=== PATIENT | female | born 1970 | race Hispanic/Latino ===

== ENCOUNTER 2020-03-12 16:50 | Emergency (ER) | payer SELFPAY | END 2020-03-12 17:01 | disposition left against medical advice (07) | PROVIDERS: Emergency Provider Internal Medicine Hematology & Oncology | DX: Z53.21 Procedure and treatment not carried out due to patient leaving prior to being seen by health care provider (principal) | CPT/HCPCS: 99199 ==

== ENCOUNTER 2020-03-12 17:18 | Observation (INO) | payer SELFPAY ==
[2020-03-12] VITALS (12 sets, daily range): BP systolic 126–161; BP diastolic 61–89; PULSE 111–135; RESP 12–25; TEMP 36.7–37.2; O2SAT 93–100; BMI 42.0
--- NOTE | ~2020-03-12 | CT_ITS ---
EXAMINATION: CT brain wo con DATE: 03/12/2020 19:49 INDICATION: Dizziness. TECHNIQUE: Computed tomography (CT) of the head was performed without intravenous contrast. The mA wa s adjusted according to patient size. Iterative reconstruction technique was employed. The dose-lengt h product was 605.33 mGy-cm. COMPARISON: None FINDINGS: There is no intracranial hemorrhage, acute infarction, or abnormal intracranial mass lesion . The ventricles are normal in size. The mastoid air cells are normal. The paranasal sinuses are aaron r. The orbits are normal. IMPRESSION: 1. Normal brain. Reviewed, dictated and finalized at location A. IMPRESSION: 1. Normal brain.
--- NOTE | ~2020-03-12 | US_ITS ---
EXAMINATION: US right upper quadrant EXAM DATE: 03/13/2020 08:47 INDICATION: Elevated liver function tests. TECHNIQUE: Multiple grayscale and Doppler images of the abdomen right upper quadrant were obtained (b y a technologist who performed the scan) and subsequently reviewed. There is no prior study for alexsandra walton. FINDINGS: The pancreatic head and body are normal in appearance. The pancreatic tail is not visualized. There is echogenic liver parenchyma, hepatic steatosis. There are no focal liver lesions identified. Th ere is no evidence of intrahepatic biliary duct dilation. Portal venous flow was seen in the hepatop edal, normal direction and has normal Doppler waveform. No right-sided hydronephrosis. Common bile duct measures 3 mm, which is normal. The gallbladder fossa is unremarkable. IMPRESSION: 1. Hepatic steatosis. Reviewed, dictated and finalized at location B. IMPRESSION: 1. Hepatic steatosis.
--- NOTE | ~2020-03-12 | XR_ITS ---
EXAMINATION: XR chest 1V portable DATE: 03/12/2020 17:49 INDICATION: Shortness of breath. TECHNIQUE: A single frontal view of the chest was obtained. COMPARISON: Chest 2 views 11/28/2011 FINDINGS: The chest demonstrates clear lungs without pneumonia, pleural effusion, or pneumothorax. Th e heart size is normal. IMPRESSION: 1. No acute cardiopulmonary disease. Reviewed, dictated and finalized at location A.
--- NOTE | 2020-03-12 17:36 | ECG_ITS ---
Measurements Intervals [place] Rate: 126 P: 66 IN: 145 QRS: 29 QRSD: 89 T: 59 QT: 334 QTc: 484 Interpretive Statements SINUS TACHYCARDIA DELAYED PRECORDIAL R/S TRANSITION ABNORMAL ECG Electronically Signed On 03-12-2020 20:18:04 CDT by Filiberto Kent D.O.
[2020-03-12 17:54] LABS: Basophils Absolute Auto 0.1 K/mm3 (0.0-0.1); Basophils Percent Auto 0.4 % (0.2-1.2); Eosinophils Absolute Auto 0.3 K/mm3 (0-0.3); Eosinophils Percent Auto 2.2 % (0-4.4); Hematocrit 43.8 % (37.0-47.0); Hemoglobin 14.7 g/dL (12.0-15.0); Immature Granulocyte Absolute 0.04 K/mm3 (0.00-0.031); Immature Granulocyte Percent A 0.4 % (0-0.5); Lymphocytes Percent Auto 41.8 % (18.3-44.2); Mean Corpuscular HGB Conc 33.6 g/dl (32-36); Mean Corpuscular Hemoglobin 30.8 pg (26-34); Mean Corpuscular Volume 91.8 fl (80-100); Mean Platelet Volume 12.3 fl (7.4-10.4); Monocytes Percent Auto 9.2 % (2.6-8.5); Neutrophils Absolute Auto 5.2 K/mm3 (1.3-6.7); Platelet Count Result 193 k/mm3 (150-375); Red Blood Count 4.77 M/mm3 (4.2-5.4); Red Cell Distribution Width 13.2 % (11.5-14.5); White Blood Count 11.3 K/mm3 (4.5-10.0)
[2020-03-12 18:03] LABS: INR 1.1
[2020-03-12 18:04] LABS: Partial Thromboplastin Time 25.8 SECONDS (22.3-36.8)
[2020-03-12 18:08] LABS: Alanine Aminotransferase 71 U/L (4-35); Albumin Level 3.8 g/dL (3.5-5.1); Alkaline Phosphatase 257 U/L (38-126); Anion Gap 8 mmol/L (8-16); Aspartate Amino Transferase 105 U/L (14-36); Bilirubin,Total 0.6 mg/dL (0.2-1.3); Blood Urea Nitrogen 10 mg/dL (7-17); Calcium 8.8 mg/dL (8.4-10.2); Carbon Dioxide 26 mmol/L (22-30); Chloride 99 mmol/L (98-107); Estimated CRCL calculation 132 ml/min; Estimated Glomerular Filt Rate > 60; Glucose 447 mg/dL (65-105); Potassium 3.2 mmol/L (3.4-5.0); Sodium 133 mmol/L (137-145)
[2020-03-12 18:20] LABS: NT Pro B Type Natriuretic Pept 77 PG/ML (5-100); Troponin I < 0.012 ng/mL (0.000-0.034)
--- NOTE | 2020-03-12 18:35 | ED.DIZZY ---
HPI - Dizziness General Chief Complaint: Dizziness Stated Complaint: dizzy/HTN Time Seen by Provider: 03/12/20 18:14 Source: patient and family History of Present Illness HPI Narrative: 50 years old female presents with dizziness 30 minutes after taking her sister and law blood pressure medicine, nifedipine ER 60 mg. 2 hours ago. Currently patient feeling okay, denying any symptoms, blood pressure right now is 136/84. Patient ran out of her lisinopril 20 mg once a day 1 week ago. Patient denies any fever, chills, nausea, vomiting, shortness of breath, chest pain, headache. Related Data Home Medications Medication Instructions Recorded Confirmed No Home Medications 03/12/20 03/12/20 Allergies Allergy/AdvReac Type Severity Reaction Status Date / Time No Known Allergies Allergy Verified 03/12/20 17:19 Review of Systems Review of Systems: Narrative: CONSTITUTIONAL: Denies fever, chills, or sweats. EYES: Denies visual changes, redness, or discharge. ENT: Denies rhinorrhea, congestion, sore throat, or otalgia. CARDIOVASCULAR: Denies chest pain, palpitations, or edema. RESPIRATORY: Denies cough or dyspnea. GASTROINTESTINAL: Denies abdominal pain, nausea, vomiting, or diarrhea. GENITOURINARY: Denies dysuria or hematuria. SKIN: Denies rash or itching. MUSCULOSKELETAL: Denies back pain, joint pain, or myalgia. NEUROLOGIC: Denies headache, numbness, or weakness. PSYCHIATRIC: Denies anxiety or depression. PMFSH Past Medical History Medical History (Updated 03/12/20 @ 18:39 by Nomi Kelsey MD) Hypertension Social History Social History (Updated 03/12/20 @ 18:38 by Nomi Kelsey MD) Second hand tobacco smoke exposure: No Substance use: never Gender identity (if verbalized by the patient): Female Exam Narrative: Exam Narrative: General appearance: Well-developed, well-nourished Skin: Normal color Head: Normocephalic, nontraumatic Eyes: Clear conjunctiva ENT: Oropharynx normal, ears normal, nose normal Neck: Supple, nontender Chest and respiratory: Airway patent, no respiratory distress, no accessory muscle use Heart: Regular rate/rhythm Abdomen: Soft, nontender, no organomegaly, quiet bowel sounds Vascular: Normal peripheral pulses, normal capillary refill. Musculoskeletal: Normal range of motion, nontender back Neurologic: Alert and oriented ?3, [employer] is normal as tested, no gross motor deficit Course Course Emergency Course: Improving Vital Signs Vital signs: Vital Signs Temperature 37.2 C 03/12/20 17:22 Pulse Rate 129 H 03/12/20 17:22 Respiratory Rate 20 03/12/20 17:22 Blood Pressure 161/80 H 03/12/20 17:22 Pulse Oximetry 97 03/12/20 17:22 Temperature 37.2 C 03/12/20 17:22 Pulse Rate 129 H 03/12/20 17:22 Respiratory Rate 20 03/12/20 17:22 Blood Pressure 161/80 H 03/12/20 17:22 Pulse Oximetry 97 03/12/20 17:22 MDM - Dizziness MDM Narrative Medical decision making narrative: Patient presents with dizziness, 30 minutes after taking nifedipine ER 60 mg. High likely patient had low blood pressure at that time causing her dizziness. On arrival to the emergency room patient symptom resolved. Currently denying any symptoms. Currently blood pressure is 136/84. The plan to discharge patient on lisinopril 20 mg once a day. Lab Data Result diagrams: 03/12/20 17:49 03/12/20 17:49 Labs: Lab Results 03/12/20 03/12/20 03/12/20 Range/Units 17:49 17:49 17:49 WBC 11.3 H (4.5-10.0) K/mm3 RBC 4.77 (4.2-5.4) M/mm3 Hgb 14.7 (12.0-15.0) g/dL Hct 43.8 (37.0-47.0) % MCV 91.8 (80-100) fl MCH 30.8 (26-34) pg MCHC 33.6 (32
[2020-03-12 18:40] LABS: Add Urine Microscopic? YES; Appearance Urine Cloudy (Clear); Bacteria Urine Trace /hpf; Bilirubin Urine Negative (Negative); Blood Urine Negative (Negative); Color Urine Yellow (Yellow); Glucose Urine UA 3+ mg/dL (Negative); Ketones Urine Negative (Negative); Leukocyte Esterase Ur Negative LEU/UL (Negative); Mucus Urine Rare /lpf; Nitrate Urine Negative (Negative); Protein Urine Negative (Negative); RBC Urine 0-2 /hpf (0-2); Squamous Epithelial Cell Urine Many /hpf (Few); Urobilinogen Urine Negative mg/dL (<2.0); WBC Urine 0-3 /hpf
[2020-03-12] MEDS: POTASSIUM CHLORIDE 20 MEQ PACKET (FOR LIQUID) 40 MEQ PO (18:55)
[2020-03-12] MEDS: SODIUM CHLORIDE 0.9% IV 1,000 ML 30 ML IV CONT (18:55)
[2020-03-12 19:06] LABS: Magnesium 1.6 mg/dL (1.6-2.3); Phosphorus 3.1 mg/dL (2.5-4.5)
--- NOTE | 2020-03-12 19:10 | PC.NURSE ---
Report received from TROY Mcneil. Assumed care of patient at this time.
[2020-03-12 19:11] LABS: Beta-Hydroxybutyrate/Acetoacetate 0.07 mmol/L (0.02-0.27)
[2020-03-12 19:11] LABS: Base Excess ABG 0.7 mEq/l (+/-2.0); Fractional Inspired Oxygen 21 %; HCO3 ABG 24.6 mEq/l (22.0-26.0); Oxygen Content ABG 20.2 %vol (16.0-22.0); Oxygen Saturation ABG 95.9 % (95.0-100.0); Oxyhemoglobin 94.3 % THb (90.0-100.0); PCO2 ABG 37.5 mmHg (35.0-45.0); PO2 ABG 77.8 mmHg (80.0-100.0); Total Hemoglobin 15.2 g/dL (12.0-18.0); pH ABG 7.435 (7.350-7.450)
[2020-03-12 19:12] LABS: Device ROOM AIR; Modified Allen's Test Pass; Site Drawn RIGHT RADIAL
[2020-03-12 19:24] LABS: D Dimer 0.28 ug/mL (<0.48)
--- NOTE | 2020-03-12 19:39 | PC.NURSE ---
Patient's bedside glucose is 375.
[2020-03-12] MEDS: SODIUM CHLORIDE 0.9% IV 1,000 ML 999 ML IV CONT ×3 (19:40→22:17)
[2020-03-12] MEDS: INSULIN HUMAN REGULAR (*BKC) 100 UNITS/ML 12 UNITS IV PUSH (19:40)
[2020-03-12 19:46] LABS: Glucose Point of Care 375 (65-105)
--- NOTE | 2020-03-12 19:46 | PC.NURSE ---
Patient being taken to CT.
--- NOTE | 2020-03-12 20:00 | PM.IMHP ---
H&P: HPI History of Present Illness Date/Time: 03/12/20 20:00. The patient was seen and evaluated in the emergency department. Chief complaint: Dizziness. Narrative: Ashlyn Cannon is a 50-year-old female with hypertension presented to this with complaints of dizziness. She does not have a primary care provider and up until last month her previous physician in [place] was refilling her lisinopril prescription. Today she felt as though her blood pressure was high due to a diffuse headache and so she took her [id number]'s medication, reportedly nifedipine ER 60 mg x1. About 30 minutes thereafter she began feeling dizzy and thus she came in for evaluation. She denies vertigo and tells me she felt more lightheaded. Her blood pressure on arrival was 161/80 and several blood tests were ordered. She was found to be hyperglycemic with a random glucose of 447 with some mild electrolyte abnormalities and elevated LFTs. With further questioning she denies previous history of diabetes or prediabetes and she has not had blurry vision, weight loss, polydipsia, polyuria, or paresthesias. She also denies near syncope, syncope, vertigo, auditory and visual changes, focal weakness, chest pain, pleuritic pain, palpitations, feelings of racing heart, shortness of breath, nausea, vomiting, diarrhea, and dysuria. Review of Systems Review of Systems: Narrative: Twelve systems were reviewed with pertinent positives and negatives as per HPI. No recent cold or flu symptoms. She denies recent travel and sick contacts. No known history of cardiac disease or cardiac dysrhythmia. No history of thyroid disease. Weight has remained stable. She denies hair loss. No recent travel or history of venous thromboembolism. Denies poor healing wounds. She is an anxious person in general, and is quite anxious about having to be admitted to the hospital. She does not know her baseline heart rate. Except as documented, all other systems were reviewed and are negative. ON LICENSE OF [facility] Past Medical History Medical History (Updated 03/12/20 @ 21:10 by Estephania Stanley PA-C) Hypertension Type 2 diabetes mellitus (~03/12/20) Surgical History Surgical History (Updated 03/12/20 @ 20:22 by Estephania Stanley PA-C) History of section History of cholecystectomy History of tubal ligation Family History Family History (Updated 03/12/20 @ 20:23 by Estephania Stanley PA-C) Other Diabetes mellitus Social History Social History (Updated 03/12/20 @ 20:23 by Estephania Stanley PA-C) Social History: Surrogate decision maker: Ginna Cannon, daughter. Code status: Full code. Smoking status: Never smoker Second hand tobacco smoke exposure: No Alcohol intake: never Substance use: never Substance use type: does not use Additional living arrangements comments: Resides with her son in [place]. Occupation/Education: unemployed Gender identity (if verbalized by the patient): Female Spiritual care concerns: No Meds Home Medications and Allergies Home Medications Medication Instructions Recorded Confirmed Type lisinopril 20 mg PO DAILY 03/12/20 03/12/20 History Allergies Allergy/AdvReac Type Severity Reaction Status Date / Time No Known Allergies Allergy Verified 03/12/20 17:19 Vital Signs Vital Signs - 24 hr 03/12/20 17:22 03/12/20 19:13 03/12/20 19:15 Temperature 98.9 F Pulse Rate 129 H 117 H 116 H Respiratory Rate 20 12 16 Blood Pressure 161/80 H Pulse Oximetry 97 95 93 03/12/20 19:16 03/12/20 19:30 03/12/20 19:53 Temperature Pulse Rate 115 H Respiratory Rate 15 14 16 Blood Pressure 145/78 H Pulse Oximetry 95 97 98 03/12/20 19:58 03/12/20 20:00 03/12/20 20:01 Temperature Pulse Rate 127 H 135 H 128 H Respiratory Rate 18 23 H 17 Blood Pressure 147/75 H 148/80 H Pulse Oximetry 96 96 97 Exam Narrative: Exam Narrative: General: Well-developed female sitting up in bed
[2020-03-12] MEDS: INSULIN HUMAN REGULAR (*BKC) 100 UNITS in SODIUM CHLORIDE 0.9% IV 99 ML 6.3 UNITS IV CONT (20:01)
[2020-03-12] MEDS: SODIUM CHLORIDE 0.9% IV 1,000 ML 150 ML (20:19)
[2020-03-12 20:29] LABS: Hemoglobin A1C 9.5 % (<5.7)
--- NOTE | 2020-03-12 20:40 | PC.NURSE ---
Patient's bedside glucose is 293.
[2020-03-12 20:41] LABS: Glucose Point of Care 293 (65-105)
--- NOTE | 2020-03-12 21:06 | ADMGEN ---
This patient, Ashlyn Cannon, was admitted to Intensive Care Unit-9. Patient/family oriented to hospital policies and general routines including ID bracelet, bed and alarms, visiting hours, pain management, procedures, bathroom and other care routines, personal items, smoking policy, room service/diet, and visiting hours. Valuables list has been completed. Information on how to activate the Rapid Response Team has been discussed. Patient/Family are encouraged to report perceived risks to care and to ask questions if they do not understand what they are told or what they should do.
[2020-03-12 21:31] LABS: Troponin I < 0.012 ng/mL (0.000-0.034)
[2020-03-12 21:46] LABS: Glucose Point of Care 259 (65-105)
[2020-03-12] MEDS: INSULIN GLARGINE (*BKC) 100 UNITS/ML 15 UNITS SUB-Q (22:18)
[2020-03-12 22:39] LABS: Hepatitis B Surface Antigen Negative (Negative)
[2020-03-12 22:44] LABS: HAV RESULT Negative (Negative); Hepatitis B Core IgM Result Negative (Negative)
[2020-03-12 22:56] LABS: Hepatitis C Virus Antibody Negative (Negative)
[2020-03-13] VITALS: BP 142/85; PULSE 100; PULSE 98; RESP 96; TEMP 37.1; O2SAT 100
--- NOTE | 2020-03-13 | ECHO_ITS ---
Patient Info Name: Ashlyn Cannon Age: 50 years : 1970 Gender: Female Ht: 63 in Wt: 236 lbs BSA: 2.24 m2 HR: 75 bpm BP: 148 / 87 mmHg Heart Rhythm: Sinus Rhythm Technical Quality: Fair Exam Date: 03/13/2020 9:29 AM Exam Location: [facility] Patient Status: Outpatient Admit Date: 03/12/2020 Staff Ordering Physician: Estephania Stanley PA-C Hydraulic Plumber: Traci Morrow RDCS Attending Provider: Sriram Lord MD Referring Physician: Lizeth BENTLEY; Exam Type: CA echo doppler color flow Study Info Indications I10 - Essential (primary) hypertension R00.0 - Tachycardia, unspecified Complete two-dimensional, color flow and Doppler transthoracic echocardiogram is performed. Summary 1. Complete two-dimensional, color flow and Doppler transthoracic echocardiogram is performed. 2. Left ventricular chamber dimension is mildly enlarged. 3. Left ventricular systolic function is normal, estimated at 65-70%. 4. Left ventricular septal wall motion is normal. 5. The left ventricular diastolic function is grade I diastolic dysfunction. 6. There is mildly increased left ventricular wall thickness. 7. Left atrial chamber dimension is mildly enlarged. 8. There is mild tricuspid valve regurgitation. 9. Mild pulmonary hypertension, estimated pulmonary arterial systolic pressure is 35 mmHg. Left Ventricle Left ventricular chamber dimension is mildly enlarged. Left ventricular systolic function is normal, estimated at 65-70%. There is mildly increased left ventricular wall thickness. Left ventricular septal wall motion is normal. The left ventricular diastolic function is grade I diastolic dysfunction. Right Ventricle Right ventricular chamber dimension is normal. Right ventricular systolic function is normal. Left Atria Left atrial chamber dimension is mildly enlarged. Right Atria Right atrial chamber dimension is normal. Atrial Septum Intact interatrial septum visualized by color flow imaging. Aortic Valve The aortic valve is trileaflet. There is no aortic valve sclerosis. There is no aortic valve stenosis. There is trace aortic valve regurgitation. Pulmonic Valve The pulmonic valve is normal. There is no pulmonic valve stenosis. There is trace pulmonic regurgitation. Mitral Valve The mitral valve has normal leaflets. There is no mitral valve stenosis. There is trace mitral valve regurgitation. Tricuspid Valve The tricuspid valve leaflets are normal. There is no significant tricuspid valve stenosis. There is mild tricuspid valve regurgitation. Mild pulmonary hypertension, estimated pulmonary arterial systolic pressure is 35 mmHg. Pericardium/Pleural The pericardium appears normal. There is trivial pericardial effusion. Inferior Vena Cava Normal inferior vena cava with <50% collapse upon inspiration consistent with elevated right atrial pressure, 10 mmHg. Aorta The aortic root size at the sinus of Valsalva is normal. Left Ventricular Outflow Tract Name Value Normal LVOT 2D LVOT Diameter 2.0 cm LVOT Doppler LVOT Peak Gradient 8 m
[2020-03-13 00:16] LABS: Anion Gap 6 mmol/L (8-16); Blood Urea Nitrogen 6 mg/dL (7-17); Calcium 8.1 mg/dL (8.4-10.2); Carbon Dioxide 22 mmol/L (22-30); Chloride 109 mmol/L (98-107); Estimated CRCL calculation 159 ml/min; Estimated Glomerular Filt Rate > 60; Glucose 335 mg/dL (65-105); Potassium 4.5 mmol/L (3.4-5.0); Sodium 137 mmol/L (137-145)
[2020-03-13] MEDS: INSULIN ASPART (*BKC) 100 UNITS/ML 8 UNITS SUB-Q (01:11)
[2020-03-13 01:56] VITALS: PULSE 87
[2020-03-13 02:00] VITALS: PULSE 90; RESP 25; O2SAT 95
[2020-03-13 04:00] VITALS: PULSE 81
[2020-03-13 04:38] LABS: Mean Corpuscular HGB Conc 34.2 g/dl (32-36); Mean Corpuscular Volume 90.5 fl (80-100); Platelet Count Result 166 k/mm3 (150-375); Red Cell Distribution Width 13.2 % (11.5-14.5); White Blood Count 10.9 K/mm3 (4.5-10.0)
[2020-03-13 04:48] LABS: INR 1.2; Prothrombin Time 14.8 Seconds (11.1-14.7)
[2020-03-13 04:49] LABS: Partial Thromboplastin Time 27.1 SECONDS (22.3-36.8)
[2020-03-13 04:54] LABS: Alanine Aminotransferase 65 U/L (4-35); Albumin Level 3.1 g/dL (3.5-5.1); Alkaline Phosphatase 192 U/L (38-126); Anion Gap 2 mmol/L (8-16); Aspartate Amino Transferase 71 U/L (14-36); Bilirubin,Total 0.6 mg/dL (0.2-1.3); Blood Urea Nitrogen 5 mg/dL (7-17); Calcium 8.2 mg/dL (8.4-10.2); Carbon Dioxide 26 mmol/L (22-30); Chloride 108 mmol/L (98-107); Estimated CRCL calculation 159 ml/min; Estimated Glomerular Filt Rate > 60; Glucose 203 mg/dL (65-105); Magnesium 1.7 mg/dL (1.6-2.3); Potassium 3.5 mmol/L (3.4-5.0); Sodium 136 mmol/L (137-145)
[2020-03-13 06:31] LABS: Glucose Point of Care 205 (65-105)
[2020-03-13 07:54] LABS: Hemoglobin A1C 9.7 % (<5.7)
[2020-03-13 08:00] VITALS: BP 148/87; PULSE 75; RESP 21; TEMP 36.7; O2SAT 96
[2020-03-13] MEDS: lisinopriL 20 MG TABLET PO (08:52)
--- NOTE | 2020-03-13 09:58 | PC.NURSE ---
This patient, Ashlyn Cannon, was received from ICU on 03/13/20 at 0958. Personal belongings list checked and signed. Patient/family oriented to unit policies and routines. Report received from TROY Collins.
--- NOTE | 2020-03-13 10:00 | PC.NURSE ---
I used the [employer] to introduce myself to the patient and orient her to the unit. The translators name was Chucho and the session number was [id number].
--- NOTE | 2020-03-13 11:53 | PM.DS ---
DS: Admitting Diagnosis Admitting Diagnosis Admitting Diagnosis: Dizziness. Uncontrolled HTN Patient was found to have a blood glucose above 400 upon presentation to ED. Patient was given insulin and fluids. 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 DS: Discharge Diagnosis Discharge Diagnosis (1) Elevated LFTs: Code(s): R79.89 - Other specified abnormal findings of blood chemistry Status: Acute Assessment and Plan: Likely fatty liver will follow up in the outpatient setting. (2) Tachycardia: Code(s): R00.0 - Tachycardia, unspecified Status: Acute Assessment and Plan: Resolved, likely secondary to dehydration. (3) Electrolyte abnormality: Code(s): E87.8 - Other disorders of electrolyte and fluid balance, not elsewhere classified Status: Acute Assessment and Plan: Replaced electrolytes. (4) New onset type 2 diabetes mellitus: Code(s): E11.9 - Type 2 diabetes mellitus without complications Status: Acute Assessment and Plan: Follow up in the outpatient setting. (5) Hypertension: Qualifiers: Hypertension type: unspecified Qualified Code(s): I10 - Essential (primary) hypertension Code(s): I10 - Essential (primary) hypertension Status: Acute Assessment and Plan: Will continue on Lisinopril. DS: Summary Time Spent with Patient Time attestation: Total time spent providing and/or coordinating discharge services: Exam Narrative: Exam Narrative: Sitting in bed NAD Const: General: healthy appearing, comfortable and no acute distress Orientation/consciousness: patient oriented x3 HENMT: Head: normal to inspection and normocephalic Ears: hearing grossly normal bilaterally General nose exam: Normal external nose present Face and sinus: normal facial exam Mouth: Yes Normal oral and palatal mucosa present Eyes: Pupils: Equal, round and reactive pupils present EOM: EOMs intact bilaterally Neck: Neck: no lymphadenopathy and no JVD Resp: Auscultation: clear to auscultation bilaterally Cardio: Jugular venous distension: no JVD Rate: regular rate Heart sounds: S1 normal heart sound present and S2 normal heart sound present GI: Inspection: obesity GI Palp: Yes Soft to palpation and Yes No hepatosplenomegaly present Skin: General skin exam: normal color Lesions: no lesions Rashes: no rashes Trauma: no lacerations or abrasions Wounds: no wounds Hair: normal Neuro: General: patient oriented x3 Cranial nerves: Yes CN's II-XII intact bilaterally and Yes Equal, round and reactive pupils present Extrem: Other: No deformities, no edema. DS: Data Data Completed and Pending Labs on day of discharge: Labs from last 24 hours 03/13/20 03/13/20 03/13/20 04:17 04:17 04:17 WBC 10.9 H RBC 4.20 Hgb 13.0 Hct 38.0 MCV 90.5 MCH 31.0 MCHC 34.2 RDW 13.2 Plt Count 166 MPV 12.0 H Immature Gran % (Auto) Neut % (Auto) Lymph % (Auto) Branch % (Auto) Eos % (Auto) Baso % (Auto) Lymph # (Auto) Branch # (Auto) Eos # (Auto) Baso # (Auto) Abs Immat Gran (auto) Absolute Neuts (auto) Absolute Nucleated RBC Nucleated RBC % PT 14.8 H INR 1.2 APTT 27.1 D-Dimer Puncture Site ABG pH ABG pCO2 ABG pO2 ABG PO2/FiO2 Ratio ABG HCO3 ABG O2 Saturation ABG O2 Content ABG Base Excess A-a Gradient Oxyhemoglobin Total Hemoglobin O2 Delivery Device O2 Liters/Min FiO2 Sodium 136 L Potassium 3.5 Chloride 108 H Carbon Dioxide 26 Anion Gap 2 L BUN 5 L Creatinine 0.40 L Estim Creat Clear Calc 159 Estimated GFR > 60 Glucose 203 H POC Capillary Glucose Hemoglobin A1c Calcium 8.2 L Phosphorus Magnesium 1.7 Total Bilirubin 0.6
[2020-03-13 12:00] VITALS: PULSE 90
[2020-03-13 12:17] LABS: Glucose Point of Care 263 (65-105)
[2020-03-13] MEDS: INSULIN ASPART (*BKC) 100 UNITS/ML SUB-Q (12:21)
--- NOTE | 2020-03-13 12:42 | PCDIET ---
Nutrition consult received. Discussed carbohydrate counting with patient and daughter. See Nutritional Teaching for additional details.
[2020-03-15 04:02] LABS: Glucose Point of Care 170 (65-105)
== END 2020-03-13 13:37 | disposition home or self-care (01) ==
LOC: ANHED 20:04 → ANHICU 21:10 → ANH2MED 03-13 11:51 → ANHICU 03-14 13:06
PROVIDERS: Emergency Medicine Emergency Medical Services; Physician Assistant; Admitting Provider Family Medicine; Emergency Provider Emergency Medicine; Visit Provider Internal Medicine
DX: R79.89 Other specified abnormal findings of blood chemistry (principal); E11.65 Type 2 diabetes mellitus with hyperglycemia; E87.8 Other disorders of electrolyte and fluid balance, not elsewhere classified; R00.0 Tachycardia, unspecified; I10 Essential (primary) hypertension; K76.0 Fatty (change of) liver, not elsewhere classified; R94.31 Abnormal electrocardiogram [ECG] [EKG]
CPT/HCPCS: 36415; 36600; 70450; 71045; 76705; 80048; 80053; 80074; 80076; 81001; 82010; 82805; 82948; 83036; 83735; 83880; 84100; 84443; 84484; 85025; 85027; 85380; 85610; 85730; 93005; 93306; 96361; 96365; 96366; 96375; 99285; A9270; G0378; G0379; J1815; J3480; J7030

== ENCOUNTER 2022-05-07 14:59 | Emergency (ER) | payer SELFPAY ==
--- NOTE | 2022-05-07 15:00 | ED.DENTAL ---
HPI - Dental/Oral General Chief complaint: Dental/Oral Stated complaint: tooth pain Time Seen by Provider: 05/07/22 15:24 Source: patient, RN notes reviewed and old records reviewed Mode of arrival: ambulatory Limitations: no limitations History of Present Illness HPI Narrative: 52-year-old female presents to the [facility] with dental pain to the left upper. States she made a dental appointment for mid May. States her pain is making her not be able to sleep. MD Complaint: tooth pain Related Data Home Medications Medication Instructions Recorded Confirmed metoprolol succinate 25 mg 25 mg PO DIRECTED 05/07/22 05/07/22 tablet,extended release 24 hr Allergies Allergy/AdvReac Type Severity Reaction Status Date / Time No Known Allergies Allergy Verified 03/12/20 17:19 Review of Systems Review of Systems: All systems reviewed & are unremarkable except as noted in HPI and below Constitutional: Constitutional: Reports no additional constitutional complaints, Denies chills and Denies fever(s) Eyes: Eyes: Reports no additional eye complaints ENT: Reports as per HPI Comments: Dental pain right upper Cardiovascular: Cardiovascular: Reports no additional cardiovascular complaints, Denies chest pain and Denies dyspnea Respiratory: Respiratory: Reports no additional respiratory complaints, Denies cough and Denies dyspnea Musculoskeletal: Musculoskeletal: Reports no additional musculoskeletal complaints Integumentary/Breasts: Skin/Breast: Reports system reviewed and no additional complaints, except as docu Neurologic: Reports system reviewed and no additional complaints, except as documented Psychiatric: Psychiatric: Reports no additional psychiatric complaints Allergic/Immunologic: Allergic/Immunologic: Reports no additional allergic/immunologic complaints PMFSH Past Medical History Medical History Hypertension Type 2 diabetes mellitus (~03/12/20) Surgical History Surgical History History of section History of cholecystectomy History of tubal ligation Family History Family History Father Diabetes mellitus Hypertension Mother Diabetes mellitus Hypertension Social History Social History Social History: Surrogate decision maker: Ginna Cannon, daughter. Code status: Full code. Smoking status: Never smoker Second hand tobacco smoke exposure: No Alcohol intake: never Substance use: never Substance use type: does not use Additional living arrangements comments: Resides with her son in [place]. Gender identity (if verbalized by the patient): Female Spiritual care concerns: No Comments At the time of my signature, I reviewed and agree with the nursing past medical, surgical, social, and family history. There is no relevant family history pertinent to the patient complaint. Exam Const: General: healthy appearing, no acute distress, alert and well nourished Nutritional Appearance: well nourished Orientation/consciousness: patient oriented x3 Limitations: no limitations HENMT: Head: normal to inspection Ears: external ears normal, TM's normal bilaterally and EAC's normal Face/Nose/Sinus: external nose not normal, Normal nasal mucous membranes and turbinates present and normal facial exam Face and sinus: normal facial exam Mouth: Yes Normal oral and palatal mucosa present, Yes lip normal and Yes moist mucous membranes Teeth and gingiva: poor dentition and other (Swelling and decayed teeth to the left upper molars. ) Throat: posterior oropharynx normal, tonsils normal and uvula midline Eyes: General: appearance normal, both eyes and all related structures Alignment and Position: alignment normal Conjunctivae: conjunctivae normal Pupils: Eq
[2022-05-07 15:09] VITALS: BP 141/85; PULSE 90; RESP 16; TEMP 37.1; O2SAT 99
== END 2022-05-07 15:39 | disposition home or self-care (01) ==
PROVIDERS: Emergency Provider Nurse Practitioner
DX: K04.7 Periapical abscess without sinus (principal); K02.9 Dental caries, unspecified; I10 Essential (primary) hypertension; E11.9 Type 2 diabetes mellitus without complications
CPT/HCPCS: 99213; G0463